=== PATIENT | female | born 1940 | race American Indian/Alaskan Native ===

== ENCOUNTER 2018-07-29 16:13 | Observation (INO) | payer MEDICARE ==
--- NOTE | 2018-07-29 16:53 | Emergency Department Report ---
Blank Doc - Documentation Documentation: This is a 78-year-old female that presents with HTN. Patient was sent by PCP. Denies any pain or complaints. This initial assessment/diagnostic orders/clinical plan/treatment(s) is/are subject to change based on patient's health status, clinical progression and re-assessment by fellow clinical providers in the ED. Further treatment and workup at subsequent clinical providers discretion. Patient/guardians urged not to elope from the ED as their condition may be serious if not clinically assessed and managed. Initial orders include: 1- Patient sent to MAIN ED for further evaluation and treatment 2- labs 3- EKG
[2018-07-29 17:25] LABS: Basophils % (Auto) 0.8 % (0.0-1.8); Eosinophils # (Auto) 0.1 K/mm3 (0.0-0.4); Eosinophils % (Auto) 2.1 % (0.0-4.3); Hematocrit 37.8 % (30.3-42.9); Lymphocytes # (Auto) 1.2 K/mm3 (1.2-5.4); Lymphocytes % (Auto) 27.7 % (13.4-35.0); Mean Corpuscular HGB Conc 32 % (30-34); Mean Corpuscular Volume 91 fl (79-97); Monocytes # (Auto) 0.3 K/mm3 (0.0-0.8); Monocytes % (Auto) 6.8 % (0.0-7.3); Platelet Count 300 K/mm3 (140-440); Red Blood Count 4.18 M/mm3 (3.65-5.03); Red Cell Distribution Width 13.9 % (13.2-15.2)
[2018-07-29 17:55] LABS: Alanine Aminotransferase 6 units/L (7-56); Albumin 3.8 g/dL (3.9-5); BUN/Creatinine Ratio 15; Blood Urea Nitrogen 15 mg/dL (7-17); Calcium 9.3 mg/dL (8.4-10.2); Hemolysis Index 0
[2018-07-29] MEDS ORDERED: APRESOLINE IV ONE ×2 (18:29→19:56)
[2018-07-29] MEDS ORDERED: APRESOLINE ONE (18:32)
--- NOTE | 2018-07-29 18:41 | Emergency Department Report ---
ED General Adult HPI - General Chief complaint: High BP Stated complaint: HBP Time Seen by Provider: 07/29/18 16:51 Source: patient Mode of arrival: Ambulatory Limitations: No Limitations - History of Present Illness Initial comments: Mrs. Byrne is a healthy 78 yo female with hx of dementia and HTN who presents from urgent care with elevated blood pressure. Mrs. Byrne does not have a primary care physician. Did previously see her 's back shoe operator Dr. Black [facility]. Has not seen a physician in 3-5 years. Nor has she taken any medication in that same period of time. She was prompted to be evaluated at the urgent care center when home health nurse sent by her health insurance [employer] discovered elevated blood pressure on routine visit. Mrs. Byrne denies any pain or discomfort. She is a poor historian due to dementia. However she will answer questions to the best of her ability. -: unknown Severity scale (0 -10): 0 Improves with: none Worsens with: none Associated Symptoms: denies other symptoms Treatments Prior to Arrival: none - Related Data Home Medications Medication Instructions Recorded Confirmed Last Taken Aspirin [Adult Aspirin] 81 mg PO DAILY 07/29/18 07/29/18 07/29/18 Previous Rx's Medication Instructions Recorded Last Taken Type Donepezil [Aricept] 5 mg PO QDAY #30 tablet 07/29/18 Unknown Rx Lisinopril [Zestril TAB] 10 mg PO QDAY #30 tablet 07/29/18 Unknown Rx Allergies Allergy/AdvReac Type Severity Reaction Status Date / Time No Known Allergies Allergy Unverified 07/29/18 16:54 ED Review of Systems ROS: Stated complaint: HBP Other details as noted in HPI Comment: Unobtainable due to pts medical conditions (dementia) ED Past Medical Hx - Past Medical History Previous Medical History?: Yes Hx Hypertension: Yes Additional medical history: dementia - Surgical History Past Surgical History?: No - Social History Smoking Status: Never Smoker Substance Use Type: None - Medications Home Medications: Home Medications Medication Instructions Recorded Confirmed Last Taken Type Aspirin [Adult Aspirin] 81 mg PO DAILY 07/29/18 07/29/18 07/29/18 History Donepezil [Aricept] 5 mg PO QDAY #30 tablet 07/29/18 Unknown Rx Lisinopril [Zestril TAB] 10 mg PO QDAY #30 tablet 07/29/18 Unknown Rx ED Physical Exam - General Limitations: No Limitations General appearance: alert, in no apparent distress - Head Head exam: Present: atraumatic, normocephalic - Eye Eye exam: Present: normal appearance - ENT ENT exam: Present: mucous membranes moist - Neck Neck exam: Present: normal inspection, full ROM - Respiratory Respiratory exam: Present: normal lung sounds bilaterally. Absent: respiratory distress, wheezes, rales, rhonchi - Cardiovascular Cardiovascular Exam: Present: regular rate, normal rhythm, normal heart sounds. Absent: systolic murmur, diastolic murmur, rubs, gallop - GI/Abdominal GI/Abdominal exam: Present: soft, normal bowel sounds. Absent: distended, tenderness, guarding, rebound - Extremities Exam Extremities exam: Present: normal inspection - Back Exam Back exam: Present: normal inspection - Neurological Exam Neurological exam: Present: alert, other (oriented to name only unclear of date or situation) - Psychiatric Psychiatric exam: Present: normal affect, normal mood - Skin Skin exam: Present: warm, dry, intact, normal color. Absent: rash ED Course Vital Signs 07/29/18 07/29/18 07/29/18 16:52 18:40 19:24 Temperature 98.3 F Pulse Rate 65 68 68 Respiratory 18 16 20 Rate Blood Pressure 203/83 Blood Pressure 242/97 183/76 [Left] O2 Sat by Pulse 97 98 99 Oximetry ED Medical Decision Making - Lab Data Result diagrams: 07/29/18 17:08 07/29/18 17:08 - EKG Data 07/29/18 18:38 EKG obtained at 1704 Sinus bradycardia rate 55 beats a minute normal axis right bundle branch block no ST elevation. Nonspecific T wave pattern - Medical Decision Making Asymptomatic hypertensive urgency. CBC chemistry obtained per triage protocol within normal limits. EKG without acute changes. I highly appreciate the recommendations provided by hospitalist consultation by Dr. Simpson. Dr. Simpson evaluated Mrs. Byrne. He spoke extensively with the family. He recommended lisinopril 2.5 mg tablets. He recommended 10 day prescription. Also provided outpatient referral to medicine physician on-call and Dr. Black Blood pressure decreased to 183/76. My colleague Dr. Simpson also provided med ications for dementia in addition to lisinopril prescription Critical care attestation.: If time is entered above; I have spent that time in minutes in the direct care of this critically ill patient, excluding procedure time. ED Disposition Clinical Impression: Hypertensive urgency, malignant Disposition: DC-01 TO HOME OR SELFCARE Is pt being admited?: No Does the pt Need Aspirin: No Condition: Stable Instructions: Hypertension (ED) Prescriptions: Donepezil [Aricept] 5 mg PO QDAY #30 tablet Lisinopril [Zestril TAB] 10 mg PO QDAY #30 tablet Referrals: NIDIA KRAUS MD [Staff Physician] - TIFFANIE TATE MD [Staff Physician] - ILDEFONSO
[2018-07-29] MEDS ORDERED: ZESTRIL PO ONE (19:53)
[2018-07-29] MEDS ORDERED: NITROSTAT SL PRN (20:51)
[2018-07-29] MEDS ORDERED: BABY ASPIRIN PO STA (20:51)
[2018-07-29] MEDS ORDERED: ZOFRAN IV PRN (20:51)
[2018-07-29] MEDS ORDERED: MORPHINE IV PRN (20:51)
[2018-07-29] MEDS ORDERED: SODIUM CHLORIDE FLUSH SYRINGE 10 ML IV PRN ×2 (20:51)
[2018-07-29] MEDS ORDERED: PROVENTIL IH PRN (20:51)
[2018-07-29] MEDS ORDERED: TYLENOL PO PRN (20:51)
--- NOTE | 2018-07-29 20:51 | History and Physical Report ---
History of Present Illness Chief complaint: My chest hurts, and my blood pressure is high History of present illness: 78 YO Female with HTN, Dementia presents to ED for evaluation. Pt is confused and provides limited history. Pt family is at bedside and provides additional history. As per family, the patient is noncompliant with antihypertensive therapy. Pt has experienced increased confusion over the past 1 week, as well as complaints of pain in her chest. Pt was seen at an urgent care center and was found to have Uncontrolled HTN with systolic BP in the 220's. Pt also reports pain in her chest. Pt family acknowledges patient reporting that pain in 5/10, midsternal, constant, nonradiating, worsened with exertion, relieved with rest. Pt acknowledges decreased exercised tolerance, shortness of breath. No further history obtainable. Pt transported to [facility]. Pt seen and evaluated in ED and found to have Hypertensive Urgency/Encephalopathy, Angina, as well as symptoms consistent with Diastolic CHF. Pt admitted to telemetry. Cardiology consulted in ED. No prior admission for review. No medication listed for reconciliation at time of admission. Past History Past Medical History: hypertension, other (Dementi) Past Surgical History: No surgical history (Reviewed) Social history: , lives with family. denies: smoking, alcohol abuse, prescription drug abuse Family history: hypertension Medications and Allergies Allergies Allergy/AdvReac Type Severity Reaction Status Date / Time No Known Allergies Allergy Unverified 07/29/18 16:54 Home Medications Medication Instructions Recorded Confirmed Last Taken Type Aspirin [Adult Aspirin] 81 mg PO DAILY 07/29/18 07/29/18 07/29/18 History Donepezil [Aricept] 5 mg PO QDAY #30 tablet 07/29/18 Unknown Rx Lisinopril [Zestril TAB] 10 mg PO QDAY #30 tablet 07/29/18 Unknown Rx Active Meds: Active Medications Donepezil HCl (Aricept) 5 mg PO QHS MARY Review of Systems Constitutional: no weight loss, no weight gain, no fever, no chills Ears, nose, mouth and throat: no ear pain, no ear discharge, no decreased hearing, no nasal congestion Breasts: no change in shape, no swelling, no mass Cardiovascular: chest pain, decreased exercise tolerance, no orthopnea, no palpitations, no rapid/irregular heart beat Respiratory: no cough, no cough with sputum, no excessive sputum, no hemoptysis Gastrointestinal: no nausea, no vomiting, no diarrhea, no constipation, no change in bowel habits Genitourinary Female: no pelvic pain, no flank pain, no dysuria Rectal: no pain, no incontinence, no bleeding Musculoskeletal: no neck stiffness, no neck pain, no shooting arm pain, no arm numbness/tingling, no low back pain Integumentary: no rash, no pruritis, no redness, no sores, no wounds Neurological: no transient paralysis, no weakness, no parathesias, no seizures, no syncope Psychiatric: no anxiety, no change in sleep habits, no insomnia, no change in libido Endocrine: no heat intolerance, no polyphagia, no nocturia Hematologic/Lymphatic: no easy bruising, no easy bleeding, no lymphedema Allergic/Immunologic: no persistent infections, no anaphylaxis Exam - Constitutional Vitals: Temp Pulse Resp BP Pulse Ox 98.3 F 68 20 153/85 99 07/29/18 16:52 07/29/18 19:24 07/29/18 19:24 07/29/18 20:41 07/29/18 19:24 General appearance: Present: no acute distress, well-nourished - EENT Eyes: Present: PERRL ENT: hearing intact, clear oral mucosa - Neck Neck: Present: supple, normal ROM - Respiratory Respiratory effort: normal Respiratory: bilateral: CTA - Cardiovascular Heart Sounds: Present: S1 & S2. Absent: rub, click - Extremities Extremities: pulses symmetrical, No edema Peripheral Pulses: within normal limits - Abdominal General gastrointestinal: Present: soft, non-tender, non-distended, normal bowel sounds Female genitourinary: Present: normal - Integumentary Integumentary: Present: clear, warm, dry - Musculoskeletal Musculoskeletal: gait normal, strength equal bilaterally - Psychiatric Psychiatric: appropriate mood/affect, intact judgment & insight - Neurologic Neurologic: CNII-XII intact, moves all extremities Results - Labs CBC & Chem 7: 07/29/18 17:08 07/29/18 17:08 Labs: Abnormal lab results 07/29/18 Range/Units 17:08 Glucose 143 H (65-100) mg/dL ALT 6 L (7-56) units/L Albumin 3.8 L (3.9-5) g/dL Assessment and Plan - Patient Problems (1) Diastolic CHF Current Visit: No Status: Acute Qualifiers: Heart failure chronicity: acute Qualified Code(s): I50.31 - Acute diastolic (congestive) heart failure Plan to address problem: Admit to telemetry, Echo, thyroid panel, magnesium level, blood pressure control, strict I/O, daily weight, afterload reduction, cardiology consulted in ED. (2) Angina at rest Current Visit: No Status: Acute Plan to address problem: Serial cardiac enzymes, ekg, telemetry, echo, d dimer, bnp, morphine, supplemental oxygen, nitro, aspirin, cardiology consulted for further testing. (3) Hypertensive urgency, malignant Current Visit: No Status: Inactive Plan to address problem: Monitor bp q shift, hydralazine prn, goal systolic overnight 155-180, (4) Encephalopathy Current Visit: Yes Status: Acute Plan to address problem: CT Head, neuro check, fall precaution, aspiration precaution, thyroid panel, (5) DVT prophylaxis Current Visit: No Status: Acute Plan to address problem: SCD to BLE while in bed, prophylactic lovenox
[2018-07-29 21:42] LABS: Chol/HDL Ratio 4.19 %
[2018-07-29 21:49] LABS: Free T4 (Free Thyroxine) 0.95 ng/dL (0.76-1.46)
[2018-07-29] MEDS ORDERED: PEPCID PO SCH (22:00)
[2018-07-29] MEDS: PEPCID PO SCH (23:01)
[2018-07-29] MEDS: SODIUM CHLORIDE FLUSH SYRINGE 10 ML IV SCH (23:01)
[2018-07-29] MEDS: ARICEPT PO SCH (23:01)
[2018-07-30 06:47] LABS: BUN/Creatinine Ratio 16; Blood Urea Nitrogen 16 mg/dL (7-17); Calcium 9.2 mg/dL (8.4-10.2); Hemolysis Index 22
[2018-07-30] MEDS: APRESOLINE IV PRN ×2 (09:14→17:51)
[2018-07-30] MEDS: SODIUM CHLORIDE FLUSH SYRINGE 10 ML IV SCH ×2 (09:18→22:31)
[2018-07-30] MEDS ORDERED: NORVASC PO SCH ×3 (10:00→22:00)
[2018-07-30] MEDS: PEPCID PO SCH ×2 (11:44→22:30)
--- NOTE | 2018-07-30 11:54 | Cat Scan Report ---
PROCEDURE: CT HEAD/BRAIN WO CON TECHNIQUE: Computerized tomography of the head was performed without contrast material. CT DOSE LENGTH PRODUCT: 920.5 mGycm HISTORY: confusion COMPARISONS: None . FINDINGS: Patient motion artifact degrades image quality and limits the examination. No acute air-fluid level visualized in the included air-filled sinuses. Bone windows demonstrate no acute fracture. There is ventricular and sulcal prominence compatible with age-appropriate global cerebrocortical atr ophy. Low attenuation regions in the cerebral white matter, while nonspecific, are present and usually attr ibuted to chronic ischemic gliosis. It can occur secondary to the normal aging process, hypertension, or arterial sclerotic vascular dise ase. The differential includes demyelination in the appropriate clinical setting. The brain contains no mass, mass effect, hemorrhage, or acute infarct. There is no extra-axial intracranial bleed or brain bleed. There is no midline shift. IMPRESSION: No acute CVA, intracranial bleed, or brain mass This document is electronically signed by Diogenes Farah MD., July 30 2018 11:52:21 AM ET
--- NOTE | 2018-07-30 12:00 | Cat Scan Report ---
PROCEDURE: CT ANGIO CHEST TECHNIQUE: CT of the chest performed. 100 cc Omnipaque 350 IV administered. Axial images and sagittal reformatted images were obtained. HISTORY: d dimer elevated COMPARISON: None FINDINGS: There is no aortic dissection seen. There are no abnormal pulmonary arterial filling defects seen to indicate acute pulmonary emboli. There are coronary artery calcifications. 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 There is no pleural effusion seen. There is no pneumothorax seen. There is a 3 mm nodule in the posterior right apex. Remaining lungs are clear. IMPRESSION: There is no aortic dissection or pulmonary embolism seen. Coronary artery calcifications. 3 mm nodule in the posterior right apex. Significance is doubtful. If patient is low risk for maligna ncy then no follow-up necessary. If patient has high risk then consider follow-up in one year. This document is electronically signed by Yakelin Benitez MD., July 30 2018 11:58:26 AM ET
--- NOTE | 2018-07-30 12:19 | Consultation ---
History of Present Illness Consult date: 07/30/18 Consult reason: chest pain, congestive heart failure History of present illness: This patient is an 78-year old woman who was brought in and admitted with uncontrolled hypertension. Patient has underlying Dementia. History is taken from family member at bedside. Patient has not seen a physician in several years and is not taking any medications. There were no complaints of chest pain, no unusual shortness of breath or no palpitations. ECG is sinus rhythm with RBBB. Cardiac consultation has been requested. Past History Social history: lives with family. denies: smoking, alcohol abuse, prescription drug abuse Family history: hypertension Medications and Allergies Allergies Allergy/AdvReac Type Severity Reaction Status Date / Time No Known Allergies Allergy Unverified 07/29/18 16:54 Home Medications Medication Instructions Recorded Confirmed Last Taken Type Aspirin [Adult Aspirin] 81 mg PO DAILY 07/29/18 07/29/18 07/29/18 History Donepezil [Aricept] 5 mg PO QDAY #30 tablet 07/29/18 Unknown Rx Lisinopril [Zestril TAB] 10 mg PO QDAY #30 tablet 07/29/18 Unknown Rx Active Meds: Active Medications Acetaminophen (Tylenol) 650 mg PO Q4H PRN PRN Reason: Pain MILD(1-3)/Fever >100.5/GAVIN Albuterol (Proventil) 2.5 mg IH Q4HRT PRN PRN Reason: Shortness Of Breath Amlodipine Besylate (Norvasc) 2.5 mg PO QDAY [facility] Last Admin: 07/30/18 11:44 Dose: 2.5 mg Documented by: Donepezil HCl (Aricept) 5 mg PO QHS [facility] Last Admin: 07/29/18 23:01 Dose: 5 mg Documented by: Enoxaparin Sodium (Lovenox) 40 mg SUB-Q QDAY@2200 [facility] Famotidine (Pepcid) 10 mg PO BID [facility] Last Admin: 07/30/18 11:44 Dose: 10 mg Documented by: Hydralazine HCl (Apresoline) 10 mg IV Q6HR PRN PRN Reason: Hypertension Last Admin: 07/30/18 09:14 Dose: 10 mg Documented by: Morphine Sulfate (Morphine) 2 mg IV Q4H PRN PRN Reason: Pain, Moderate (4-6) Nitroglycerin (Nitrostat) 0.4 mg SL Q5M PRN PRN Reason: Chest Pain Ondansetron HCl (Zofran) 4 mg IV Q8H PRN PRN Reason: Nausea And Vomiting Sodium Chloride (Sodium Chloride Flush Syringe 10 Ml) 10 ml IV BID [facility] Last Admin: 07/30/18 09:18 Dose: 10 ml Documented by: Sodium Chloride (Sodium Chloride Flush Syringe 10 Ml) 10 ml IV PRN PRN PRN Reason: LINE FLUSH Physical Examination Vital Signs Temp Pulse Resp BP Pulse Ox 98.3 F 65 18 203/83 97 07/29/18 16:52 07/29/18 16:52 07/29/18 16:52 07/29/18 16:52 07/29/18 16:52 General appearance: no acute distress HEENT: Positive: PERRL Neck: Positive: trachea midline Cardiac: Positive: Reg Rate and Rhythm Lungs: Positive: Normal Breath Sounds Neuro: Positive: Grossly Intact Extremities: Absent: edema Results 07/29/18 17:08 07/30/18 04:40 Cardiac Enzymes 07/29/18 Range/Units 17:08 AST 15 (5-40) units/L Lipids 07/29/18 Range/Units 21:08 Triglycerides 103 (2-149) mg/dL Cholesterol 264 H (50-199) mg/dL HDL Cholesterol 63 H (40-59) mg/dL Cholesterol/HDL Ratio 4.19 % CBC 07/29/18 Range/Units 17:08 WBC 4.5 (4.5-11.0) K/mm3 RBC 4.18 (3.65-5.03) M/mm3 Hgb 12.0 (10.1-14.3) gm/dl Hct 37.8 (30.3-42.9) % Plt Count 300 (140-440) K/mm3 Lymph # 1.2 (1.2-5.4) K/mm3 Mccone # 0.3 (0.0-0.8) K/mm3 Eos # 0.1 (0.0-0.4) K/mm3 Baso # 0.0 (0.0-0.1) K/mm3 Comprehensive Metabolic Panel 07/29/18 07/30/18 Range/Units 17:08 04:40 Sodium 144 144 (137-145) mmol/L Potassium 3.9 4.2 (3.6-5.0) mmol/L Chloride 103.9 106.7 (98-107) mmol/L Carbon Dioxide 30 26 (22-30) mmol/L BUN 15 16 (7-17) mg/dL Creatinine 1.0 1.0 (0.7-1.2) mg/dL Glucose 143 H 102 H (65-100) mg/dL Calcium 9.3 9.2 (8.4-10.2) mg/dL AST 15 (5-40) units/L ALT 6 L (7-56) units/L Alkaline Phosphatase 96 (35-129) units/L Total Protein 7.8 (6.3-8.2) g/dL Albumin 3.8 L (3.9-5) g/dL Assessment and Plan Uncontrolled hypertension Dementia
[2018-07-30] MEDS ORDERED: COZAAR PO SCH (15:00)
--- NOTE | 2018-07-30 16:49 | Progress Note ---
Subjective Date of service: 07/30/18 Interval history: Patient seen and examined No family at the time of my evaluation She is awake alert but confused Poor historian No specific complaints Chart reviewed Lab results reviewed 12 point review of systems is difficult to obtain due to patient's mental status and dementia On examination No apparent distress HEENT normocephalic pupils round reacting to light throat is clear Neck is supple no JVD Lungs diminished breath sounds but clear to auscultation Heart S1-S2 regular rate and rhythm Abdomen is soft nontender no hepatosplenomegaly Extremities no leg edema RV MECHANIC: Confused but moves all extremities Assessment and plan Hypertensive emergency Cardiology note reviewed and appreciated Blood pressure is still fairly high around 180 systolic We will increase the losartan to 100 mg daily darting in a.m. Add hydralazine 25 mg 3 times daily Continue hydrochlorothiazide and amlodipine Hyperlipidemia Start on atorvastatin 20 mg daily Elevated d-dimer CT angiogram of the chest was negative for DVT Recheck venous Doppler of the lower extremities. There is no significant swelling Dementia Continue home medication Objective - Constitutional Vitals: Vital Signs - 12hr 07/30/18 07/30/18 07/30/18 07:35 08:45 09:14 Temperature 98.1 F Pulse Rate 80 Respiratory 18 Rate Blood Pressure 180/77 180/77 O2 Sat by Pulse 96 Oximetry 07/30/18 07/30/18 09:52 11:44 Temperature Pulse Rate 56 L Respiratory 18 Rate Blood Pressure 189/89 O2 Sat by Pulse Oximetry - Labs CBC & Chem 7: 07/29/18 17:08 07/30/18 04:40 Labs: Abnormal lab results 07/29/18 07/29/18 07/29/18 Range/Units 17:08 21:08 21:08 D-Dimer 1204.59 H (0-234) ng/mlDDU Glucose 143 H (65-100) mg/dL ALT 6 L (7-56) units/L Albumin 3.8 L (3.9-5) g/dL Cholesterol 264 H (50-199) mg/dL LDL Cholesterol Direct 189 H (50-130) mg/dL HDL Cholesterol 63 H (40-59) mg/dL 07/30/18 Range/Units 04:40 D-Dimer (0-234) ng/mlDDU Glucose 102 H (65-100) mg/dL ALT (7-56) units/L Albumin (3.9-5) g/dL Cholesterol (50-199) mg/dL LDL Cholesterol Direct (50-130) mg/dL HDL Cholesterol (40-59) mg/dL
[2018-07-30] MEDS ORDERED: LOVENOX SUB-Q SCH (22:00)
[2018-07-30] MEDS: APRESOLINE PO SCH (22:30)
[2018-07-30] MEDS: ARICEPT PO SCH (22:30)
[2018-07-31 08:35] VITALS: BP 132/55
[2018-07-31] MEDS ORDERED: NORVASC PO SCH (10:00)
[2018-07-31] MEDS: COZAAR PO SCH ×2 (10:02→13:34)
[2018-07-31] MEDS: HCTZ PO SCH ×2 (10:02→13:33)
[2018-07-31] MEDS: PEPCID PO SCH (10:03)
--- NOTE | 2018-07-31 10:18 | Progress Note ---
Assessment and Plan Uncontrolled hypertension -improved Dementia No evidence of PE by chest CTA. Recommendations: Continue optimal blood pressure management. Patient is stable for cardiac discharge. Subjective Date of service: 07/31/18 Interval history: Alert with confusion. She has no complaints. BP has improved, currently 132/55. Family member is at the bedside. Objective Vital Signs Temp Pulse Resp BP Pulse Ox 07/31/18 07:56 98.7 F 18 132/55 07/31/18 05:06 98.1 F 73 20 146/73 97 07/30/18 23:49 98.5 F 76 20 140/68 98 07/30/18 21:54 98.2 F 70 20 150/62 97 07/30/18 20:26 59 L 07/30/18 17:51 59 L 184/74 07/30/18 17:27 98.0 F 18 184/74 07/30/18 11:44 56 L 189/89 07/30/18 11:38 97.5 F L 18 189/89 - Physical Examination General: No Apparent Distress HEENT: Positive: PERRL Neck: Positive: trachea midline Cardiac: Positive: Reg Rate and Rhythm Lungs: Positive: Normal Breath Sounds Neuro: Positive: Grossly Intact Extremities: Absent: edema
--- NOTE | 2018-07-31 11:11 | Vascular Lab Report ---
PROCEDURE: VL VENOUS DUPLEX LE BILAT TECHNIQUE: Grayscale and color and spectral doppler ultrasound imaging of the bilateral lower extrem ity venous system was performed. HISTORY: high D dimer COMPARISONS: None. FINDINGS: There is normal compression and color flow within the bilateral lower extremity venous systems. Norm al augmentation. No soft tissue abnormality. IMPRESSION: No evidence of deep venous thrombosis. This document is electronically signed by Heena Marino., July 31 2018 11:09:24 AM ET
[2018-07-31] MEDS: APRESOLINE PO SCH (13:34)
[2018-07-31] MEDS: SODIUM CHLORIDE FLUSH SYRINGE 10 ML IV SCH (13:34)
--- NOTE | 2018-07-31 15:45 | Discharge Summary ---
Providers - Providers Date of Admission: 07/29/18 20:51 Date of discharge: 07/31/18 Attending physician: FELICIANO PANDYA 07/29/18 Consult to Cardiac Rehabilitation [CONS] Routine Reason For Exam: Phase I 07/29/18 20:51 Consult to Cardiology [CONS] Routine Consulting Provider: JOSE NEWELL Reason For Exam: chf/angina 07/29/18 22:13 Consult to Dietitian/Nutrition [CONS] Routine Physician Instructions: Reason For Exam: DIET Reason for Consult: Pt needs oral supplement Primary care physician: HENNA ARIAS Hospitalization Condition: Stable Pertinent studies: CTA chest IMPRESSION: There is no aortic dissection or pulmonary embolism seen. Coronary artery calcifications. 3 mm nodule in the posterior right apex. Significance is doubtful. If patient is low risk for malignancy then no follow-up necessary. If patient has high risk then consider follow-up in one year. This document is electronically signed by Yakelin Benitez MD., July 30 2018 11:58:[address] Head IMPRESSION: No acute CVA, intracranial bleed, or brain mass Hospital course: (1) Diastolic CHF Current Visit: No Status: Acute Qualifiers: Heart failure chronicity: acute Qualified Code(s): I50.31 - Acute diastolic (congestive) heart failure Plan to address problem: Improved (2) Angina at rest Current Visit: No Status: Acute Plan to address problem: Serial cardiac enzymes, ekg, telemetry, echo, d dimer, bnp, morphine, supplemental oxygen, nitro, aspirin, cardiology consulted for further testing. (3) Hypertensive urgency, malignant Current Visit: No Status: Inactive Plan to address problem: Improved BP meds adjusted and prescribed (4) Encephalopathy Current Visit: Yes Status: Acute Plan to address problem: Resolved (5) DVT prophylaxis Current Visit: No Status: Acute Plan to address problem: SCD to BLE while in bed, prophylactic lovenox Disposition: DC-01 TO HOME OR SELFCARE Core Measure Documentation - Palliative Care Palliative Care/ Comfort Measures: Not Applicable - Core Measures Any of the following diagnoses?: heart failure - Heart Failure Discharge Requirements KANNAN/ARB for LVSD if EF <40%: Yes Beta blayne at discharge: Yes Exam - Constitutional Vitals: Temp Pulse Resp BP Pulse Ox 98.7 F 80 18 132/55 97 07/31/18 07:56 07/31/18 12:00 07/31/18 07:56 07/31/18 07:56 07/31/18 05:06 General appearance: Present: no acute distress, well-nourished - EENT Eyes: Present: PERRL ENT: hearing intact, clear oral mucosa - Neck Neck: Present: supple, normal ROM - Respiratory Respiratory effort: normal Respiratory: bilateral: CTA - Cardiovascular Heart rate: 76 Rhythm: regular Heart Sounds: Present: S1 & S2. Absent: rub, click - Extremities Extremities: no ischemia, pulses intact, pulses symmetrical, No edema Peripheral Pulses: within normal limits - Abdominal General gastrointestinal: Present: soft, non-tender, non-distended, normal bowel sounds Female genitourinary: Present: normal - Rectal Rectal Exam: deferred - Integumentary Integumentary: Present: clear, warm, dry - Musculoskeletal Musculoskeletal: gait normal, strength equal bilaterally - Psychiatric Psychiatric: appropriate mood/affect, intact judgment & insight - Neurologic Neurologic: CNII-XII intact, moves all extremities Plan Activity: no restrictions Diet: low fat, low cholesterol, low salt Follow up with: NIDIA KRAUS MD [Staff Physician] - ILDEFONSO TIFFANIE GOMEZ MD [Staff Physician] - ILDEFONSO Prescriptions: Donepezil [Aricept] 5 mg PO QDAY #30 tablet Lisinopril [Zestril TAB] 10 mg PO QDAY #30 tablet
== END 2018-07-31 16:45 | disposition home or self-care (01) ==
LOC: ED 16:13 → 4A 20:51 → INTOOBSV 20:51
PROVIDERS: ADMIT Internal Medicine; ATTEND Internal Medicine
DX: I16.0 Hypertensive urgency (principal); I20.8 Other forms of angina pectoris; I11.0 Hypertensive heart disease with heart failure; I50.30 Unspecified diastolic (congestive) heart failure; G93.40 Encephalopathy, unspecified; F03.90 Unspecified dementia, unspecified severity, without behavioral disturbance, psychotic disturbance, mood disturbance, and anxiety; E78.5 Hyperlipidemia, unspecified; Z79.899 Other long term (current) drug therapy
CPT/HCPCS: 36415; 70450; 71275; 80048; 80053; 80061; 83735; 83880; 84439; 84443; 84484; 85025; 85379; 93005; 93010; 93970; 96372; 96374; 96376; 99284; A9270; G0378; J0360; J1650; Q9967; 99285